=== PATIENT | female | born 1960 | race Caucasian/White ===

== ENCOUNTER 2019-06-16 13:15 | Outpatient (RCR) | payer OTHER, SELFPAY ==
--- NOTE | 2019-05-25 11:43 | PTOPEVAL ---
PHYSICAL THERAPY EVALUATION AND PLAN OF CARE 05-25-2019 The PT evaluation was completed for the diagnosis of L shoulder and L hip pain. The plan of treatment is for 2x/week for 4 weeks. Thank you for referring Amie to [facility]. Please review, sign, date and return this plan of care DRAKE. I agree with and certify that the following plan of care is medically necessary. Referring Physician Date Attending Provider: Jordan Puri MD *PT Outpatient Evaluation Start: 05/25/19 10:37 Document 05/25/19 10:30 MIRTA (Rec: 05/25/19 11:41 MIRTA [id number]) Outpatient Past Medical History Neurological History Hx Migraine Yes: chronic issues- on meds, about 2x/month Cardiovascular History Hx Hypertension Yes: med control Respiratory History Hx Asthma Yes: meds control Gastrointestinal History Hx Gastrointestinal Disorders No Significant History Genitourinary History Hx Genitourinary Disorders No Significant History Musculoskeletal History Hx Arthritis Yes: hands,neck, knees-- pain Hematological History Hx Hematological Disorders No Significant History Endocrine History Hx Hypothyroidism Yes: meds control; watching nodules on thyroid HEENT History Hx Other HEENT Disorders Yes: L light perception only; glasses Integumentary History Hx Other Skin Disorders Yes: precancerous skin lesions removed Other History Hx Other Surgeries Yes: abdominal masses removed 2x- precancerous Evaluation Information Problem Diagnosis L shoulder pain and L leg pain Onset about 6 months ago Additional Evaluation Detail have fallen 3x in past year-- walking in parking lot, and when just walking, not trip over anything; not sure why; neurologist told her- due to migraines and syncopy; Subjective Information reports inflamed tendon front Query Text:As Reported By Patient/ of L hip ; some increase pain Family since falls; states dr told her L leg is shorter than R, has ordered a 3/8 shoe lift; have had pain blocks in L post shoulder in past; Dr Puir gave her injection and helped Diagnostic Tests X-Rays For This Problem Yes: per pt: L sh joint OK, cuff OK; L hip joint OK Previous Treatments Previous Treatments For This Problem no recent PT treatment; did
--- NOTE | 2019-06-29 12:49 | PCPTNOTE ---
pt called and canceled today's reevaluation due to being ill;
--- NOTE | 2019-07-15 13:31 | PCPTNOTE ---
PHYSICAL THERAPY DISCHARGE 07-15-2019 Attending Provider: Jordan Puri MD Patient:Amie Carter Date of :1960 Amie has not returned for any further treatments since 06/16/2019, therefore she will be discharged from therapy at this time. The goals were not addressed. Thank you for referring Amie to [facility]. Please review, sign, date and return this discharge summary DRAKE. I have been updated about the patient's current status and I agree with discharge from the above service at this time. Referring Physician Date
== END 2019-07-16 10:40 | disposition home or self-care (01) ==
LOC: ANHPT 13:15
PROVIDERS: PCP Nurse Practitioner Family; Visit Provider Orthopaedic Surgery
DX: M75.82 Other shoulder lesions, left shoulder (principal); M25.552 Pain in left hip
CPT/HCPCS: 97110; 97140; 97162; 97530

== ENCOUNTER 2019-09-13 09:42 | Outpatient (CLI) | payer OTHER, SELFPAY ==
--- NOTE | ~2019-09-13 | MR_ITS ---
EXAMINATION: MRA brain wo con EXAM DATE: 09/13/2019 10:49 INDICATION: Headaches, dizziness. TECHNIQUE: 3-D [id number] MRA of the intracranial arteries was performed without contrast. There is no prior study for comparison. FINDINGS: There is normal flow related signal seen within the vertebral, basilar and internal carotid arteries. There is no proximal stenosis. There are mild scattered bilateral regions of cerebral artery narrow ing, likely mild atherosclerosis. There are no aneurysms identified. Both A1 and P1 segments are pat ent. Flow in the cerebral arteries is symmetric. IMPRESSION: Probable mild scattered cerebral arterial atherosclerosis. Reviewed, dictated and finalized at location A.
== END 2019-09-13 09:43 | disposition home or self-care (01) ==
PROVIDERS: PCP Nurse Practitioner Family
DX: R51 Headache (principal); R42 Dizziness and giddiness
CPT/HCPCS: 70544

== ENCOUNTER → 2020-12-05 13:29 | Outpatient (CLI) | payer BC, SELFPAY ==
--- NOTE | ~2020-12-05 | MM_ITS ---
EXAMINATION: MM screening [facility] BI w ashly HISTORY: Screening mammogram TECHNIQUE: Craniocaudal and mediolateral oblique 3-D tomosynthesis images were obtained and synthetic 2-D images were generated. CAD analysis was submitted and interpreted. COMPARISON: 01/20/2018 BREAST PARENCHYMAL COMPOSITION: There are scattered areas of fibroglandular density. FINDINGS: There is no evidence of suspicious mass, calcification, or architectural distortion to sugg est malignancy in either breast. There has been no suspicious interval change. IMPRESSION: 1. No mammographic evidence of malignancy. 2. Recommend routine screening mammography in one year. BI-RADS Category 1: Negative Reviewed, dictated and finalized at location A.
== END ==
PROVIDERS: PCP Nurse Practitioner Family; Visit Provider Nurse Practitioner Family
DX: Z12.31 Encounter for screening mammogram for malignant neoplasm of breast (principal)
CPT/HCPCS: 77063; 77067

== ENCOUNTER → 2021-01-22 10:12 | Outpatient (CLI) | payer BC, SELFPAY ==
--- NOTE | ~2021-01-22 | DEXA_ITS ---
Bone Density Report Name: Amie Boswell Age: 60 Sex: Female Ethnicity: White Date of : 1960 Indication: postmenopausal; screening for osteoporosis; history of glucocorticoids; asthma or emphysema; hysterectomy; Referring Provider: Britton, Santhosh Study: Bone densitometry was performed. Exam Date: January 22, 2021 Accession number: [id number] Bone Density: Region BMD T-score Z-score Classification AP Spine (L1-L4) 0.891 -1.4 -0.1 Osteopenia Femoral Neck (Left) 0.624 -2.0 -0.8 Osteopenia Total Hip (Left) 0.818 -1.0 -0.2 Normal Femoral Neck (Right) 0.632 -2.0 -0.8 Osteopenia Total Hip (Right) 0.825 -1.0 -0.1 Normal Total Hip Mean 0.822 -1.0 -0.2 Normal World Health Organization criteria for BMD impression classify patients as: Normal (T-score at or above -1.0), Osteopenia (T-score between -1.0 and -2.5), or Osteoporosis (T-score at or below -2.5). 10-year Fracture Risk(1): Major Osteoporotic Fracture 14% Hip Fracture 1.8% Reported Risk Factors: [place] (), Neck BMD=0.632, BMI=28.0, glucocorticoids (1) FRAX(R) Version 3.08. Fracture probability calculated for an untreated patient. Fracture probability may be lower if the patient has received treatment. Clinical Information Provided by Patient: Has taken Glucocorticoids Has used the following medications: Vitamin D Has the following medical conditions: Asthma or Emphysema, Hysterectomy Patient maximum height was 64.3 Menopause Age: 38 Does not regularly consume dairy products Drinks caffeinated beverages Onset of menses at age 16 Number of children 1 Impression: The patient has low bone mass, based on the Left Femoral Neck T-score. The patient has an estimated ten-year risk of hip fracture of 1.8% and an estimated ten-year risk of major fracture of 14%, based on the WHO FRAX algorithm. The patient has risk factors, including: history of glucocorticoid therapy. Discussion: BONE DENSITY IS LOW AT ONE OR MORE SKELETAL SITES. This patient's lowest T-score is low at one or more skeletal sites. It meets the World Health Organization's (WHO) criteria for ?low bone mass? (T-score between -1.0 and -2.5). The patient's 10-year risk of fracture as calculated by FRAX is less than the threshold where pharmacological therapy is recommended by the National Osteoporosis Foundation (NOF). However, all treatment decisions require clinical judgment and consideration of individual patient factors, including patient preferences, comorbidities, previous drug use, risk factors not captured in the FRAX model (e.g., frailty, falls, vitamin D deficiency, increased bone turnover, interval significant decline in bone density) and possible under or overestimation of fracture risk by FRAX. The patient should follow a healthful lifestyle (good nutrit
== END ==
PROVIDERS: PCP Nurse Practitioner Family; Visit Provider Nurse Practitioner Family
DX: M85.88 Other specified disorders of bone density and structure, other site (principal); M85.852 Other specified disorders of bone density and structure, left thigh; M85.851 Other specified disorders of bone density and structure, right thigh
CPT/HCPCS: 77080

== ENCOUNTER → 2022-02-08 10:24 | Outpatient (CLI) | payer BC, SELFPAY ==
--- NOTE | ~2022-02-08 | XR_ITS ---
EXAMINATION: XR chest 2V 02/08/2022 10:36 INDICATION: Cough and shortness of breath PROCEDURE: 2 view chest COMPARISON: No prior studies for comparison. FINDINGS: The lungs are clear. The cardiomediastinal silhouette is within normal limits. There are no pleural effusions. There is no pneumothorax suspected. IMPRESSION: 1: NO ACUTE CARDIOPULMONARY DISEASE. Reviewed, dictated and finalized at location B.
== END ==
PROVIDERS: PCP Nurse Practitioner Family; Visit Provider Nurse Practitioner Family
DX: R05.9 Cough, unspecified (principal); R06.02 Shortness of breath
CPT/HCPCS: 71046

== ENCOUNTER → 2022-03-11 14:06 | Outpatient (CLI) | payer BC, SELFPAY ==
--- NOTE | ~2022-03-11 | MM_ITS ---
EXAMINATION: MM screening [facility] BI w ashly HISTORY: Screening mammogram TECHNIQUE: Craniocaudal and mediolateral oblique 3-D tomosynthesis images were obtained and synthetic 2-D images were generated. CAD analysis was submitted and interpreted. COMPARISON: 12/05/2020, 01/20/2018 BREAST PARENCHYMAL COMPOSITION: There are scattered areas of fibroglandular density. FINDINGS: No suspicious mass, calcification, or architectural distortion are identified in either fauzia ast to suggest malignancy. There has been no suspicious interval change. IMPRESSION: 1. No mammographic evidence of malignancy. 2. Recommend routine screening mammography in one year. BI-RADS Category 1: Negative Reviewed, dictated and finalized at location A. [employer]AL [employer]IC[employer]
== END ==
PROVIDERS: PCP Emergency Medicine; Visit Provider Emergency Medicine
DX: Z12.31 Encounter for screening mammogram for malignant neoplasm of breast (principal)
CPT/HCPCS: 77063; 77067

== ENCOUNTER 2022-06-06 14:20 | Outpatient (CLI) | payer BC, SELFPAY ==
[2022-06-06 20:29] LABS: Kit Draw Collected
== END 2022-06-06 14:21 | disposition home or self-care (01) ==
LOC: ANHGOSHLAB 14:22
PROVIDERS: PCP Emergency Medicine; Visit Provider Nurse Practitioner
DX: K55.9 Vascular disorder of intestine, unspecified (principal)
CPT/HCPCS: 36415

== ENCOUNTER 2022-06-17 13:59 | Outpatient (CLI) | payer BC, SELFPAY ==
--- NOTE | ~2022-06-17 | CT_ITS ---
EXAMINATION: CTA abdomen pelvis DATE: 06/17/2022 14:35 INDICATION: Ischemic colitis TECHNIQUE: Computed tomographic angiography (CTA) of the abdomen and pelvis was performed with 100 mL Omnipaque-350 intravenous contrast. Additional 3D reconstructions utilizing rotating maximum intensi ty projection (MIP) were performed. Automated exposure control and iterative reconstruction technique were employed. The dose-length product was 640.46 mGy-cm. COMPARISON: None FINDINGS: Mild dependent atelectasis in bilateral lower lobes. Heart size is normal. No pericardial or pleural effusion. Very small sliding-type hiatal hernia. Liver, gallbladder, spleen, pancreas and bilateral a drenal glands are normal. Bilateral renal cysts, the larger on the left measuring 1.7 cm with subcent imeter cyst at the lower pole of the right kidney. Bowels including the appendix are normal. Bladder is normal. The uterus is not identified and has likely been surgically resected. No free intraperiton eal gas or fluid. No pathologically enlarged abdominal or pelvic lymphadenopathy. Multiple phlebolith s in the pelvis. Chronic sclerotic bone island at the left posterior iliac spine which can be seen on radiographs dated 05/13/2019. Thoracic aorta is normal in caliber with no dissection. There is a single tiny focus of calcific athe rosclerotic plaque along the infrarenal abdominal aorta. The celiac axis, superior and inferior mesen teric arteries are widely patent with no evident atherosclerotic plaque. Incidentally noted is a smal l accessory right renal artery which supplies the anterior lower pole. Minimal atherosclerotic plaque at the bifurcation of the right common iliac artery. No hemodynamically stenosis of the pelvic or vi sualized proximal femoral arteries. IMPRESSION: 1. Normal caliber abdominal aorta with no evident hemodynamically significant stenosis along the aort a or its major branch vessel in the abdomen or pelvis. 2. No acute intra-abdominal/pelvic process. 3. Small sliding-type hiatal hernia. Reviewed, dictated and finalized at location A. [employer] IMPRESSION: 1. Normal caliber abdominal aorta with no evident hemodynamically significant s tenosis along the aorta or its major branch vessel in the abdomen or pelvis. 2. No acute intra-abdominal/pelvic process. 3. Small sliding-type hiatal hernia.
[2022-06-17 14:31] LABS: Estimated Glomerular Filt Rate 57
== END 2022-06-17 14:00 | disposition home or self-care (01) ==
LOC: ANHIMG 14:04
PROVIDERS: PCP Emergency Medicine; Visit Provider Nurse Practitioner
DX: K55.9 Vascular disorder of intestine, unspecified (principal); K44.9 Diaphragmatic hernia without obstruction or gangrene
CPT/HCPCS: 74174; Q9967

== ENCOUNTER 2022-08-20 09:26 | Outpatient (CLI) | payer BC, SELFPAY | END 2022-08-20 09:27 | disposition home or self-care (01) | LOC: ANHGOSHLAB 09:29 | PROVIDERS: PCP Emergency Medicine | DX: L65.8 Other specified nonscarring hair loss (principal) | CPT/HCPCS: 36415; 82728 ==

== ENCOUNTER 2022-12-19 08:27 | Outpatient (CLI) | payer BC, SELFPAY ==
[2022-12-19 19:00] LABS: Alanine Aminotransferase 26 U/L (6-35); Albumin Level 4.3 g/dL (3.5-5.1); Alkaline Phosphatase 98 U/L (38-126); Anion Gap 4 mmol/L (8-16); Aspartate Amino Transferase 38 U/L (14-36); Bilirubin,Total 0.7 mg/dL (0.2-1.3); Blood Urea Nitrogen 15 mg/dL (7-17); Calcium 9.3 mg/dL (8.4-10.2); Carbon Dioxide 31 mmol/L (22-30); Chloride 105 mmol/L (98-107); Cholesterol 216 mg/dL (0-200); Estimated Glomerular Filt Rate > 60; Glucose 95 mg/dL (65-110); HDL Direct 37 mg/dL; Potassium 4.3 mmol/L (3.4-5.0); Sodium 140 mmol/L (137-145); Triglycerides 239 mg/dL (<150)
[2022-12-19 19:06] LABS: Basophils Absolute Auto 0.1 K/mm3 (0.0-0.1); Basophils Percent Auto 0.9 % (0.2-1.2); Eosinophils Absolute Auto 0.2 K/mm3 (0-0.3); Hematocrit 47.1 % (37.0-47.0); Immature Granulocyte Absolute 0.04 K/mm3 (0.00-0.031); Immature Granulocyte Percent A 0.8 % (0-0.5); Lymphocytes Percent Auto 33.9 % (18.3-44.2); Mean Corpuscular HGB Conc 31.8 g/dl (32-36); Mean Corpuscular Hemoglobin 29.5 pg (26-34); Mean Corpuscular Volume 92.7 fl (80-100); Mean Platelet Volume 10.7 fl (7.4-10.4); Monocytes Absolute Auto 0.5 K/mm3 (0.1-0.6); Monocytes Percent Auto 8.7 % (2.6-8.5); Neutrophils Absolute Auto 2.8 K/mm3 (1.3-6.7); Neutrophils Percent Auto 52.7 % (45.5-73.1); Platelet Count Result 229 k/mm3 (150-375); Red Blood Count 5.08 M/mm3 (4.2-5.4); Red Cell Distribution Width 13.2 % (11.5-14.5); White Blood Count 5.3 K/mm3 (4.5-10.0)
[2022-12-19 19:11] LABS: LDL Cholesterol Direct 122 mg/dL
[2022-12-19 19:30] LABS: Thyroid Stimulating Hormone 0.086 uIU/mL (0.465-4.680); Total Triiodothyronine (T3) 1.21 NG/ML (0.97-1.69)
[2022-12-19 19:55] LABS: Free T4 Free Thyroxine 1.85 ng/mL (0.78-2.19)
[2022-12-19 20:11] LABS: Hemoglobin A1C 5.3 % (<5.7)
== END 2022-12-19 08:28 | disposition home or self-care (01) ==
LOC: ANHGOSHLAB 08:31
PROVIDERS: PCP Emergency Medicine; Visit Provider Emergency Medicine
DX: K52.9 Noninfective gastroenteritis and colitis, unspecified (principal); Z13.220 Encounter for screening for lipoid disorders; Z13.1 Encounter for screening for diabetes mellitus; E03.9 Hypothyroidism, unspecified
CPT/HCPCS: 36415; 80053; 80061; 83036; 84439; 84443; 84480; 85025

== ENCOUNTER 2023-02-06 08:37 | Outpatient (CLI) | payer BC, SELFPAY ==
[2023-02-06 09:13] LABS: Appearance Urine Clear (Clear); Bacteria Urine None Seen /hpf; Bilirubin Urine Negative (Negative); Blood Urine Negative (Negative); Calcium Oxalate Crystals Urine Present /hpf; Color Urine Yellow (Yellow); Glucose Urine UA Negative (Negative); Ketones Urine Negative (Negative); Leukocyte Esterase Ur 2+ LEU/UL (Negative); Nitrate Urine Negative (Negative); Non Pathogenic Casts 0-2; Protein Urine Negative (Negative); RBC Urine 0-2 /hpf (0-2); Squamous Epithelial Cell Urine None seen /hpf (Few); WBC Urine >100 /hpf
[2023-02-06 09:17] LABS: Add Urine Microscopic? YES
== END 2023-02-06 08:38 | disposition home or self-care (01) ==
PROVIDERS: PCP Emergency Medicine; Visit Provider Emergency Medicine
DX: R30.0 Dysuria (principal)
CPT/HCPCS: 81001; 87086

== ENCOUNTER 2023-03-11 13:35 | Outpatient (CLI) | payer BC, SELFPAY ==
[2023-03-11 18:51] LABS: Appearance Urine Cloudy (Clear); Bacteria Urine None Seen /hpf; Bilirubin Urine Negative (Negative); Blood Urine Negative (Negative); Color Urine Dark Yellow (Yellow); Glucose Urine UA Negative (Negative); Ketones Urine Negative (Negative); Leukocyte Esterase Ur 3+ LEU/UL (Negative); Need Manual Microscopic Reviewed; Nitrate Urine Positive (Negative); Non Pathogenic Casts 0-2; Protein Urine Negative (Negative); Specific Grav Ur 1.011 (1.001-1.035); Squamous Epithelial Cell Urine None seen /hpf (Few); WBC Urine >100 /hpf
[2023-03-11 18:54] LABS: Add Urine Microscopic? YES
== END 2023-03-11 13:36 | disposition home or self-care (01) ==
LOC: ANHGOSHLAB 13:36
PROVIDERS: PCP Emergency Medicine; Visit Provider Emergency Medicine
DX: R30.0 Dysuria (principal)
CPT/HCPCS: 81001; 87086; 87088

== ENCOUNTER 2023-06-05 08:04 | Outpatient (CLI) | payer BC, SELFPAY ==
[2023-06-05 20:00] LABS: Total Triiodothyronine (T3) 1.24 NG/ML (0.97-1.69)
[2023-06-05 20:11] LABS: Free T4 Free Thyroxine 1.52 ng/mL (0.78-2.19)
== END 2023-06-05 08:05 | disposition home or self-care (01) ==
LOC: ANHGOSHLAB 08:06
PROVIDERS: PCP Emergency Medicine; Visit Provider Nurse Practitioner
DX: E03.9 Hypothyroidism, unspecified (principal)
CPT/HCPCS: 36415; 84439; 84443; 84480

== ENCOUNTER 2023-08-22 11:00 | Outpatient (CLI) | payer BC, SELFPAY ==
--- NOTE | ~2023-08-22 | XR_ITS ---
EXAMINATION:XR cervical spine min 6V DATE: 08/22/2023 11:31 INDICATION: Cervical radiculopathy TECHNIQUE: AP, lateral, lateral flexion, lateral extension, lateral swimmers, left and right oblique and odontoid views of the cervical spine are provided. COMPARISON: None FINDINGS: There is hypomobility of the cervical spine with flexion and extension with no interval change in 1.2 mm anterolisthesis C3 on C4 where 2 mm anterolisthesis C4 on C5. Odontoid is intact. Mild atlantoaxi al osteoarthritis. Vertebral body heights are normal. Severe disc height loss at C6-C7 and mild disc height loss at C5-C6. There is multilevel moderate to severe cervical facet and uncovertebral osteoar thritis. This contributes to mild to moderate neural foraminal stenosis on the left at C5-C6 with mil d neural from stenosis on the left at C4-C5 and C6-C7 and on the right at C6-C7. Prevertebral soft ti ssues are normal. The visualized upper lungs are clear. IMPRESSION: 1. Severe lower cervical spondylosis with multilevel moderate to severe cervical facet and uncoverteb ral osteoarthritis. Reviewed, dictated and finalized at location A. IMPRESSION: 1. Severe lower cervical spondylosis with multilevel moderate to severe cervica l facet and uncovertebral osteoarthritis.
== END 2023-08-22 11:01 ==
PROVIDERS: PCP Emergency Medicine; Visit Provider Emergency Medicine
DX: M43.02 Spondylolysis, cervical region (principal); M53.82 Other specified dorsopathies, cervical region
CPT/HCPCS: 72052

== ENCOUNTER 2023-09-30 09:00 | Outpatient (RCR) | payer BC, SELFPAY ==
--- NOTE | 2023-08-29 16:00 | OPREHPOC ---
Outpatient Therapy Plan of Care This is a Multidisciplinary Plan of Care that may contain components documented by all disciplines (PT, OT, and ST.) PT Problem 1 PT Problem #1 Knowledge Deficit PT Goal 1 Goal [place] with HEP Target Visit 4 PT Problem 2 PT Problem #2 Pain PT Goal 1 Goal Patient will report no pain greater than 2/10 with cervical functional rotation activirty Target Visit 8 PT Goal 2 Goal Patient will report 75% improvement in L hand radicular symptoms Target Visit 4 PT Problem 3 PT Problem #3 Impaired Range of Motion PT Goal 1 Goal Demonstrate 50+ degrees of willy cervical rotation indicating improved joint glide and gross functional range improvement. Target Visit 8 PT Problem 4 PT Problem #4 Impaired Strength PT Goal 1 Goal Demonstrate 10#+ impalement in L hand manager document strength Target Visit 8
--- NOTE | 2023-08-29 16:00 | PTOPEVAL1 ---
Assessment and note entered by Sterling Mccarthy, PT Evaluation Information Assessment Status Evaluation Diagnosis Cervical radiculopathy Onset July 2023 Subjective Information Reports that she has pain in the left side of the neck with radiating pain down her left arm. She is left handed. She has been sleeping better since she started Flexeril at this time. She is currently taking Flexeril and Lyrica for nerve pain and has been on them for 1 week. She has not been moving her neck much for fear of pain up til now. Reported Pain Level Pain Score 5: Self Report Assessment PT Clinical Summary Patient presents with signs and symptoms consistent with cervical stenosis and radiculopathy. Imaging indicate spondylosis and poor disc height in lower cervical spine with radicular symptoms into left hand and loss of box puller strength. Will benefit from skilled therapy to address deficits and improve gross cervical motion and reduce pain. Plan of Care Interventions Electrical Stimulation,Hot Pack/Cold Pack,Manual Therapy,Mechanical Traction,Neuro Re-education, Therapeutic Activities,Therapeutic Exercise PT Services Indicated Yes Treatment Frequency and 2x/week for 8 visits Duration These treatments will address the objective and functional deficits as defined above. The patient will be advanced safely and appropriately in order for the patient to progress towards his/her prior level of function. Additional exercises will be introduced and as well as a comprehensive home exercise program upon discharge, if needed, ?to ensure carryover of functional gains achieved in the clinic. This treatment plan has been reviewed and agreement upon by the patient.
--- NOTE | 2023-09-30 09:54 | OPREHPOC ---
Outpatient Therapy Plan of Care This is a Multidisciplinary Plan of Care that may contain components documented by all disciplines (PT, OT, and ST.) PT Problem 1 PT Problem #1 Knowledge Deficit PT Goal 1 Goal [place] with HEP Target Visit 4 Progress Met PT Problem 2 PT Problem #2 Pain PT Goal 1 Goal Patient will report no pain greater than 2/10 with cervical functional rotation activirty Target Visit 8 Progress Met PT Goal 2 Goal Patient will report 75% improvement in L hand radicular symptoms Target Visit 4 Progress Met PT Problem 3 PT Problem #3 Impaired Range of Motion PT Goal 1 Goal Demonstrate 50+ degrees of willy cervical rotation indicating improved joint glide and gross functional range improvement. Target Visit 8 Progress Met PT Problem 4 PT Problem #4 Impaired Strength PT Goal 1 Goal Demonstrate 10#+ impalement in L hand overlock waistline joiner strength Target Visit 8 Progress Met
--- NOTE | 2023-09-30 09:54 | PTOPDC ---
Assessment and note entered by Sterling Mccarthy, PT Evaluation Information Assessment Status Discharge Diagnosis Cervical radiculopathy Onset July 2023 Subjective Information Reports that she feels she is a lot better. She is still having headaches which is hard for her to differentiate between that and true neck pain. She is getting tension in back of head and a little bit of nausea. She has tried to be more conscientious of posture and it seems to help when she is. Reported Pain Level Pain Score 1: Self Report Assessment PT Clinical Summary Patient has met all goals for therapy and is suitable for discharge to [facility] at this time. Patient not objectively limited at this time and occasional headaches remain sole provocation of pain but are improved. Plan of Care PT Services Indicated D/C to [facility]
== END 2023-09-30 10:44 | disposition home or self-care (01) ==
LOC: ANHGOSHPT 09:00
PROVIDERS: PCP Emergency Medicine; Visit Provider Emergency Medicine
DX: M54.12 Radiculopathy, cervical region (principal)
CPT/HCPCS: 97014; 97110; 97140; 97161; G0283